=== PATIENT | male | born 1955 | race African-American/Black ===

== ENCOUNTER 2018-05-16 11:28 | Inpatient (IN) | payer MEDICARE, MEDICAID ==
[~2018-05-16] VITALS: Ht 170.2 cm; Wt 66.5 kg
[~2018-05-16 11:28] MED LIST: AMLO5TAB92 PO; ASPI-1265 PO; CARV-50 PO; LISI-600 PO; METF500T PO; NORCO10T PO; PANT40TA4 PO; PRAV20TA4 PO
[2018-05-16 12:16] LABS: BASOPHILS % (AUTO) 0.4 % (0-1); EOSINOPHILS % (AUTO) 0.7 % (0-6); LYMPHOCYTES # (AUTO) 1.2 X10'3 (1.1-4.8); LYMPHOCYTES % (AUTO) 26.5 % (21-51); MEAN CORPUSCULAR HEMOGLOBIN 26.8 PG (27.0-31.0); MEAN CORPUSCULAR HGB CONC 33.4 % (33.0-36.5); MEAN CORPUSCULAR VOLUME 80.4 FL (78-98); MEAN PLATELET VOLUME 8.6 FL (7.4-10.4); MONOCYTES # (AUTO) 0.3 X10'3 (0-0.9); MONOCYTES % (AUTO) 7.2 % (2-12); NEUTROPHILS % (AUTO) 65.2 % (42-75); PLATELET COUNT 207 X10'3 (140-440); RED BLOOD COUNT 4.47 X10'6 (4.70-6.10); RED CELL DISTRIBUTION WIDTH 14.9 % (11.5-14.5); WHITE BLOOD COUNT 4.7 X10'3 (4.5-11.0)
[2018-05-16 12:29] LABS: PARTIAL THROMBOPLASTIN TIME 30 SECONDS (22-32); PROTHROMBIN TIME 10.2 SECONDS (9.0-12.0)
[2018-05-16 12:30] LABS: ALANINE AMINOTRANSFERASE 26 U/L (12-78); ALBUMIN 2.2 G/DL (3.4-5.0); ALBUMIN/GLOBULIN RATIO 0.5 (1.1-1.5); ALKALINE PHOSPHATASE 87 IU/L (46-116); ANION GAP 7 (8-16); ASPARTATE AMINO TRANSFERASE 20 U/L (10-37); BILIRUBIN,TOTAL 0.2 MG/DL (0.1-1.0); BLOOD UREA NITROGEN 32 MG/DL (7-18); BUN/CREATININE RATIO 10.4 (5.4-32.0); CALCIUM 8.8 MG/DL (8.5-10.1); CHLORIDE 108 MMOL/L (99-107); CREATININE 3.08 MG/DL (0.60-1.10); GLUCOSE 159 MG/DL (70-104); POTASSIUM 4.1 MMOL/L (3.5-5.1); SODIUM 142 MMOL/L (135-145); TOTAL CARBON DIOXIDE 26.8 MMOL/L (24-32); TOTAL PROTEIN 6.9 G/DL (6.4-8.2); eGFR 25 ML/MIN
[2018-05-16] MEDS ORDERED: HYDROcodone/acetaminophen 5mg/325mg tablet PO PRN (13:05)
[2018-05-16] MEDS ORDERED: nitroGLYCERIN 0.4mg SUBLingual tab SL PRN (13:05)
[2018-05-16] MEDS ORDERED: insulin Lispro (HumaLOG) vial - multi-dose SQ SCH (13:05)
[2018-05-16] MEDS ORDERED: regadenoson 0.4mg/5ml syringe IV PRN (13:05)
[2018-05-16] MEDS ORDERED: morphine 2 MG/ML inj. syringe IV PRN (13:05)
[2018-05-16] MEDS ORDERED: magnesium Cl slow-release 64mg tablet PO PRN (13:05)
[2018-05-16] MEDS ORDERED: potassium Cl 40MEQ/NS 500ml 500 ML IV PRN ×2 (13:05)
[2018-05-16] MEDS ORDERED: dextrose 50%-water 50ml dispensing syringe IV PRN ×2 (13:05)
[2018-05-16] MEDS ORDERED: magnesium 4gm in 100ml NS 100 ML IV PRN (13:05)
[2018-05-16] MEDS ORDERED: magnesium 1gm/100ml D5W IVPB 100 ML IV PRN (13:05)
[2018-05-16] MEDS ORDERED: acetaminophen 325mg tablet PO PRN ×2 (13:05)
[2018-05-16] MEDS ORDERED: potassium Cl 20 mEq SR tablet PO PRN ×2 (13:05)
[2018-05-16] MEDS ORDERED: metoprolol tartrate 1mg/ml inj IV PRN (13:05)
[2018-05-16] MEDS ORDERED: mag hydrox/Alum hydrox/simeth 30ml oral suspension PO PRN (13:05)
[2018-05-16] MEDS ORDERED: diphenhydrAMINE 25mg capsule PO PRN (13:05)
[2018-05-16] MEDS ORDERED: MESSAGE TO PHARMACY PO ONE (13:05)
[2018-05-16] MEDS ORDERED: glucagon, human recombinant 1mg kit SUBCUT PRN (13:05)
[2018-05-16] MEDS ORDERED: dextrose ORAL solution 15 GM/59 ML bottle PO PRN ×2 (13:05)
[2018-05-16] MEDS ORDERED: magnesium hydroxide 30ml (MOM) UD suspension PO PRN (13:05)
[2018-05-16] MEDS ORDERED: aminophylline 250mg/10ml inj. IV PRN (13:05)
[2018-05-16] MEDS: K and/or MAG REPLACEMENT MC SCH (13:15)
[2018-05-16 13:28] LABS: HEMOGLOBIN A1C 7.2 % (4.5-6.2)
[2018-05-16] MEDS: normal saline 1000ml 1,000 ML IV SCH (14:51)
[2018-05-16] MEDS ORDERED: NIFE30TA88 PO (15:46)
[2018-05-16] MEDS ORDERED: CLON0.1T20 PO (15:59)
[2018-05-16] MEDS ORDERED: GLIM1TAB46 PO (16:00)
[2018-05-16] MEDS ORDERED: DOCU100C41 PO (16:00)
[2018-05-16] MEDS ORDERED: DULO-31 PO (16:01)
[2018-05-16] MEDS ORDERED: ERGOCALCIFEROL PO (16:02)
[2018-05-16 16:14] VITALS: BP 188/112
[2018-05-16] MEDS: hydrALAZINE 20mg/ml inj. IV PRN ×2 (16:39→23:46)
[2018-05-16] MEDS ORDERED: ERGOCALCIFEROL PO SCH (17:05)
[2018-05-16] MEDS ORDERED: labetalol 20mg/4ml (5mg/ml) syringe IV ONE (17:35)
[2018-05-16] MEDS ORDERED: LORazepam 2 mg/ml vial IV ONE (17:35)
[2018-05-16] MEDS: morphine 2 MG/ML inj. syringe IV PRN (18:02)
[2018-05-16 19:00] VITALS: BP 172/88
[2018-05-16] MEDS: cloNIDine 0.1 mg tablet PO SCH (20:23)
[2018-05-16] MEDS: carVEDilol 12.5mg tablet PO SCH (20:24)
[2018-05-16] MEDS: heparin, porcine 5000 units/ml vial SQ SCH (20:24)
[2018-05-16] MEDS: docusate sod 100mg capsule PO SCH (20:24)
[2018-05-16] MEDS ORDERED: non-formulary drug (Pravastatin Sodium 20 MG) PO SCH (21:00)
[2018-05-16] MEDS: insulin glargine (Lantus) pen - multi-dose SQ SCH (21:00)
[2018-05-16 23:00] VITALS: BP 189/102
[2018-05-17] VITALS (17 sets, daily range): BP systolic 137–183; BP diastolic 76–105
[2018-05-17] MEDS: HYDROcodone/acetaminophen 10/325mg tab PO PRN ×2 (00:30→07:10)
[2018-05-17] MEDS: morphine 2 MG/ML inj. syringe IV PRN (02:04)
[2018-05-17] MEDS: normal saline 1000ml 1,000 ML IV SCH ×3 (02:13→19:38)
[2018-05-17 05:56] LABS: BASOPHILS % (AUTO) 0 % (0-1); EOSINOPHILS # (AUTO) 0.1 X10'3 (0-0.9); EOSINOPHILS % (AUTO) 1.7 % (0-6); HEMATOCRIT 32.2 % (42.0-52.0); HEMOGLOBIN 10.7 g/dl (14.0-17.9); LYMPHOCYTES # (AUTO) 1.6 X10'3 (1.1-4.8); LYMPHOCYTES % (AUTO) 32.6 % (21-51); MEAN CORPUSCULAR HGB CONC 33.4 % (33.0-36.5); MEAN CORPUSCULAR VOLUME 80.7 FL (78-98); MEAN PLATELET VOLUME 9.2 FL (7.4-10.4); MONOCYTES # (AUTO) 0.5 X10'3 (0-0.9); MONOCYTES % (AUTO) 9.5 % (2-12); NEUTROPHILS # (AUTO) 2.8 X10'3 (1.8-7.7); NEUTROPHILS % (AUTO) 56.2 % (42-75); PLATELET COUNT 189 X10'3 (140-440); RED BLOOD COUNT 3.98 X10'6 (4.70-6.10); RED CELL DISTRIBUTION WIDTH 14.8 % (11.5-14.5); WHITE BLOOD COUNT 4.9 X10'3 (4.5-11.0)
[2018-05-17] MEDS: aspirin 81mg tab.chew PO SCH (07:06)
[2018-05-17] MEDS: heparin, porcine 5000 units/ml vial SQ SCH ×2 (07:06→19:41)
[2018-05-17] MEDS: carVEDilol 12.5mg tablet PO SCH ×2 (07:06→19:39)
[2018-05-17] MEDS: pantoprazole 40mg Tablet.DR PO SCH (07:06)
[2018-05-17] MEDS: duloxetine 30mg CAPSULE.DR PO SCH (07:06)
[2018-05-17] MEDS: NIFEdipine XL 30mg tablet PO SCH (07:06)
[2018-05-17] MEDS: cloNIDine 0.1 mg tablet PO SCH ×2 (07:06→19:40)
[2018-05-17] MEDS: docusate sod 100mg capsule PO SCH ×2 (07:06→19:39)
[2018-05-17 07:27] LABS: ALANINE AMINOTRANSFERASE 23 U/L (12-78); ALBUMIN 1.9 G/DL (3.4-5.0); ALBUMIN/GLOBULIN RATIO 0.5 (1.1-1.5); ALKALINE PHOSPHATASE 68 IU/L (46-116); ANION GAP 13 (8-16); ASPARTATE AMINO TRANSFERASE 19 U/L (10-37); BILIRUBIN,TOTAL 0.3 MG/DL (0.1-1.0); BLOOD UREA NITROGEN 30 MG/DL (7-18); BUN/CREATININE RATIO 10.8 (5.4-32.0); CALCIUM 8.2 MG/DL (8.5-10.1); CHLORIDE 111 MMOL/L (99-107); CHOL/HDL RATIO 2.7 (0.00-4.99); CHOLESTEROL 156 MG/DL (0-200); CREATININE 2.78 MG/DL (0.60-1.10); GLUCOSE 81 MG/DL (70-104); HDL CHOLESTEROL 58 MG/DL (35-60); LDL CHOLESTEROL 81 MG/DL (50-100); MAGNESIUM 1.5 MG/DL (1.5-2.4); PHOSPHORUS 3.2 MG/DL (2.3-4.5); POTASSIUM 3.6 MMOL/L (3.5-5.1); SODIUM 147 MMOL/L (135-145); TOTAL CARBON DIOXIDE 22.7 MMOL/L (24-32); TRIGLYCERIDES 106 MG/DL (20-135); eGFR 28 ML/MIN
[2018-05-17] MEDS: K and/or MAG REPLACEMENT MC SCH (08:00)
[2018-05-17] MEDS ORDERED: NIFEDIPINE PO SCH (08:00)
[2018-05-17] MEDS: ondansetron/PF 4mg/2ml inj IV PRN ×2 (09:32→12:46)
[2018-05-17] MEDS ORDERED: regadenoson 0.4mg/5ml syringe IV ONE (12:02)
[2018-05-17] MEDS ORDERED: aminophylline inj. 10 ML IV ONE (12:02)
[2018-05-17] MEDS ORDERED: ondansetron/PF 4mg/2ml inj ONE (12:39)
[2018-05-17] MEDS ORDERED: atorvastatin 10mg tablet PO SCH (21:00)
[2018-05-17] MEDS: insulin glargine (Lantus) pen - multi-dose SQ SCH (21:25)
[2018-05-18 02:00] VITALS: BP 180/91
[2018-05-18 03:43] VITALS: BP 184/96
[2018-05-18] MEDS: hydrALAZINE 20mg/ml inj. IV PRN (03:43)
[2018-05-18 04:57] LABS: BASOPHILS % (AUTO) 0.4 % (0-1); EOSINOPHILS # (AUTO) 0.1 X10'3 (0-0.9); HEMOGLOBIN 10.3 g/dl (14.0-17.9); LYMPHOCYTES # (AUTO) 1.6 X10'3 (1.1-4.8); LYMPHOCYTES % (AUTO) 25.4 % (21-51); MEAN CORPUSCULAR HEMOGLOBIN 26.7 PG (27.0-31.0); MEAN CORPUSCULAR HGB CONC 33.1 % (33.0-36.5); MEAN CORPUSCULAR VOLUME 80.5 FL (78-98); MEAN PLATELET VOLUME 9.1 FL (7.4-10.4); MONOCYTES # (AUTO) 0.5 X10'3 (0-0.9); NEUTROPHILS # (AUTO) 4.1 X10'3 (1.8-7.7); NEUTROPHILS % (AUTO) 65.2 % (42-75); PLATELET COUNT 179 X10'3 (140-440); RED BLOOD COUNT 3.85 X10'6 (4.70-6.10); WHITE BLOOD COUNT 6.2 X10'3 (4.5-11.0)
[2018-05-18 07:00] VITALS: BP 179/99
[2018-05-18 07:15] LABS: ALANINE AMINOTRANSFERASE 22 U/L (12-78); ALBUMIN 1.8 G/DL (3.4-5.0); ALBUMIN/GLOBULIN RATIO 0.5 (1.1-1.5); ALKALINE PHOSPHATASE 63 IU/L (46-116); ANION GAP 10 (8-16); ASPARTATE AMINO TRANSFERASE 21 U/L (10-37); BILIRUBIN,TOTAL 0.3 MG/DL (0.1-1.0); BLOOD UREA NITROGEN 33 MG/DL (7-18); BUN/CREATININE RATIO 11.7 (5.4-32.0); CALCIUM 8.2 MG/DL (8.5-10.1); CHLORIDE 110 MMOL/L (99-107); CREATININE 2.82 MG/DL (0.60-1.10); GLUCOSE 84 MG/DL (70-104); MAGNESIUM 1.5 MG/DL (1.5-2.4); PHOSPHORUS 2.9 MG/DL (2.3-4.5); POTASSIUM 3.8 MMOL/L (3.5-5.1); SODIUM 143 MMOL/L (135-145); TOTAL CARBON DIOXIDE 23.1 MMOL/L (24-32); TOTAL PROTEIN 5.6 G/DL (6.4-8.2); eGFR 28 ML/MIN
[2018-05-18] MEDS: heparin, porcine 5000 units/ml vial SQ SCH (07:15)
[2018-05-18] MEDS: NIFEdipine XL 30mg tablet PO SCH (07:15)
[2018-05-18] MEDS: carVEDilol 12.5mg tablet PO SCH (07:16)
[2018-05-18] MEDS: pantoprazole 40mg Tablet.DR PO SCH (07:16)
[2018-05-18] MEDS: duloxetine 30mg CAPSULE.DR PO SCH (07:17)
[2018-05-18] MEDS: docusate sod 100mg capsule PO SCH (07:17)
[2018-05-18] MEDS: cloNIDine 0.1 mg tablet PO SCH (07:17)
[2018-05-18] MEDS: aspirin 81mg tab.chew PO SCH (07:17)
[2018-05-18] MEDS: K and/or MAG REPLACEMENT MC SCH (08:00)
[2018-05-18] MEDS ORDERED: isosorbide mononitrate 30mg tab.SR.24H PO SCH (08:00)
[2018-05-18] MEDS: normal saline 1000ml 1,000 ML IV SCH (08:46)
[2018-05-18 11:00] VITALS: BP 115/64
[2018-05-18] MEDS ORDERED: ISOS30TA6 PO (13:28)
[2018-05-18] MEDS ORDERED: CLON0.1T20 PO (13:28)
[2018-05-21] MEDS ORDERED: DRISDOL PO SCH (08:00)
== END 2018-05-18 14:50 | disposition home or self-care (01) | DRG 683 ==
LOC: ER 11:29 → ED HOLD 13:04 → PCU 3S 16:17
PROVIDERS: ADMIT Family Medicine; ATTEND Family Medicine
PROC: 4A02XM4 Measurement of Cardiac Total Activity, External Approach (ICD-10-PCS; principal; 2018-05-17)
PROC: 3E033HZ Introduction of Radioactive Substance into Peripheral Vein, Percutaneous Approach (ICD-10-PCS; 2018-05-17)
DX: N17.9 Acute kidney failure, unspecified (principal); I69.354 Hemiplegia and hemiparesis following cerebral infarction affecting left non-dominant side; I20.9 Angina pectoris, unspecified; E11.22 Type 2 diabetes mellitus with diabetic chronic kidney disease; E78.00 Pure hypercholesterolemia, unspecified; E78.5 Hyperlipidemia, unspecified; G89.4 Chronic pain syndrome; I12.9 Hypertensive chronic kidney disease with stage 1 through stage 4 chronic kidney disease, or unspecified chronic kidney disease; K21.9 Gastro-esophageal reflux disease without esophagitis; I34.0 Nonrheumatic mitral (valve) insufficiency; Z60.2 Problems related to living alone; N18.3 Chronic kidney disease, stage 3 (moderate); I69.328 Other speech and language deficits following cerebral infarction; Z74.01 Bed confinement status; Z99.3 Dependence on wheelchair; Z99.81 Dependence on supplemental oxygen; Z88.8 Allergy status to other drugs, medicaments and biological substances; Z79.82 Long term (current) use of aspirin; Z79.899 Other long term (current) drug therapy; Z79.84 Long term (current) use of oral hypoglycemic drugs; Z87.891 Personal history of nicotine dependence; Z83.3 Family history of diabetes mellitus
CPT/HCPCS: 36415; 71045; 78452; 80053; 80061; 82948; 83036; 83735; 84100; 84484; 85025; 85610; 85730; 87070; 93005; 93017; 93306; 99285; A9500; G0378; J0280; J0360; J1644; J1815; J2060; J2270; J2405; J3490; J7030

== ENCOUNTER 2018-09-29 12:53 | Inpatient (IN) | payer MEDICARE, MEDICAID ==
[~2018-09-29] VITALS: Ht 170.2 cm; Wt 72.7 kg
[~2018-09-29 12:53] MED LIST changes: -AMLO5TAB92 PO; +CLON0.1T20 PO; +DOCU100C41 PO; +DULO-31 PO; +ERGOCALCIFEROL PO; +GLIM1TAB46 PO; +ISOS30TA6 PO; -LISI-600 PO; -METF500T PO; +NIFE30TA88 PO
[2018-09-29 13:42] LABS: BASOPHILS % (AUTO) 0.6 % (0-1); EOSINOPHILS % (AUTO) 0.5 % (0-6); HEMATOCRIT 30.8 % (42.0-52.0); HEMOGLOBIN 10.3 g/dl (14.0-17.9); LYMPHOCYTES # (AUTO) 0.9 X10'3 (1.1-4.8); LYMPHOCYTES % (AUTO) 15.8 % (21-51); MEAN CORPUSCULAR HEMOGLOBIN 27.4 PG (27.0-31.0); MEAN CORPUSCULAR HGB CONC 33.4 g/dL (33.0-36.5); MEAN CORPUSCULAR VOLUME 81.9 FL (78-98); MEAN PLATELET VOLUME 8.9 FL (7.4-10.4); MONOCYTES # (AUTO) 0.4 X10'3 (0-0.9); MONOCYTES % (AUTO) 7.4 % (2-12); NEUTROPHILS # (AUTO) 4.2 X10'3 (1.8-7.7); NEUTROPHILS % (AUTO) 75.7 % (42-75); PLATELET COUNT 144 X10'3 (140-440); RED BLOOD COUNT 3.76 X10'6 (4.70-6.10); RED CELL DISTRIBUTION WIDTH 14.8 % (11.5-14.5); WHITE BLOOD COUNT 5.5 X10'3 (4.5-11.0)
[2018-09-29 14:07] LABS: ALANINE AMINOTRANSFERASE 33 U/L (12-78); ALBUMIN 1.7 G/DL (3.4-5.0); ALBUMIN/GLOBULIN RATIO 0.5 (1.1-1.5); ALKALINE PHOSPHATASE 61 IU/L (46-116); ANION GAP 9 (8-16); ASPARTATE AMINO TRANSFERASE 22 U/L (10-37); BILIRUBIN,TOTAL 0.2 MG/DL (0.1-1.0); BLOOD UREA NITROGEN 51 MG/DL (7-18); BUN/CREATININE RATIO 12.3 (5.4-32.0); CALCIUM 7.9 MG/DL (8.5-10.1); CHLORIDE 111 MMOL/L (99-107); CREATININE 4.13 MG/DL (0.60-1.10); GLUCOSE 237 MG/DL (70-104); POTASSIUM 3.6 MMOL/L (3.5-5.1); SODIUM 143 MMOL/L (135-145); TOTAL CARBON DIOXIDE 22.8 MMOL/L (24-32); TOTAL PROTEIN 5.3 G/DL (6.4-8.2); eGFR 18 ML/MIN
[2018-09-29 14:11] LABS: PARTIAL THROMBOPLASTIN TIME 28 SECONDS (22-32)
[2018-09-29] MEDS ORDERED: normal saline 1000ml 1,000 ML IV ONE (14:32)
[2018-09-29] MEDS ORDERED: normal saline 1000ML IV soln IVB ONE (14:35)
--- NOTE | 2018-09-29 15:28 | NUR ---
ns bolus going.
--- NOTE | 2018-09-29 15:38 | NUR ---
pt to ct.
[2018-09-29 16:18] LABS: CLARITY,URINE CLEAR (Clear); COLOR,URINE YELLOW (Yellow); GLUCOSE, URINE 500 mg/dl (Neg); KETONES,URINE NEGATIVE (Neg); LEUKOCYTE ESTERASE ,URINE NEGATIVE (Neg); NITRITES, URINE NEGATIVE (Neg); OCCULT BLOOD,URINE MODERATE (Neg); PH,URINE 6.5 (4.8-8.0); PROTEIN,URINE >=300 mg/dl (Neg)
[2018-09-29 16:20] LABS: UA COLLECTION TYPE CLN CATCH MIDSTREAM
[2018-09-29 16:37] LABS: SQUAMOUS EPITHELIAL CELL,UR NONE SEEN /LPF (FEW)
[2018-09-29 16:38] LABS: RBC,URINE 0-2 /HPF (0-2); WBC,URINE 0-4 /HPF (0-4)
[2018-09-29 16:39] LABS: BACTERIA,URINE FEW /HPF (Neg)
[2018-09-29] MEDS ORDERED: hydrALAZINE 20mg/ml inj. IV ONE (16:50)
[2018-09-29] MEDS ORDERED: hyDRALAzine 10mg tablet PO STA (16:50)
[2018-09-29] MEDS ORDERED: normal saline 1000ml 1,000 ML IV SCH (16:57)
[2018-09-29] MEDS ORDERED: morphine 4 MG/ML inj SYRINge IV PRN (17:00)
[2018-09-29] MEDS ORDERED: magnesium Cl slow-release 64mg tablet PO PRN (17:00)
[2018-09-29] MEDS ORDERED: magnesium 2GM in 50ml NS 50 ML IV PRN (17:00)
[2018-09-29] MEDS ORDERED: glucagon, human recombinant 1mg kit SUBCUT PRN (17:00)
[2018-09-29] MEDS ORDERED: ondansetron/PF 4mg/2ml inj IV PRN (17:00)
[2018-09-29] MEDS ORDERED: docusate sod 100mg capsule PO PRN (17:00)
[2018-09-29] MEDS ORDERED: dextrose ORAL solution 15 GM/59 ML bottle PO PRN ×2 (17:00)
[2018-09-29] MEDS ORDERED: acetaminophen 325mg tablet PO PRN ×2 (17:00)
[2018-09-29] MEDS ORDERED: potassium Cl 40MEQ/NS 500ml 500 ML IV PRN ×2 (17:00)
[2018-09-29] MEDS ORDERED: MESSAGE TO PHARMACY PO ONE (17:00)
[2018-09-29] MEDS ORDERED: dextrose 50%-water 50ml dispensing syringe IV PRN ×2 (17:00)
[2018-09-29] MEDS ORDERED: potassium Cl 20 mEq SR tablet PO PRN (17:00)
[2018-09-29] MEDS ORDERED: magnesium 4gm in 100ml NS 100 ML IV PRN (17:00)
[2018-09-29] MEDS: HYDROcodone/acetaminophen 5mg/325mg tablet PO PRN ×2 (17:26→23:35)
[2018-09-29] MEDS ORDERED: ISOS30TA6 PO (17:49)
[2018-09-29] MEDS ORDERED: ERGO500041 PO (17:49)
[2018-09-29 18:17] LABS: HEMOGLOBIN A1C 7.1 % (4.5-6.2)
--- NOTE | 2018-09-29 19:41 | NUR ---
Patient in room ED 13. I have received report from Allison KUMAR and had the opportunity to ask questions and assume patient care.
[2018-09-29 21:00] VITALS: BP 190/112
[2018-09-29] MEDS: insulin glargine (Lantus) pen - multi-dose SQ SCH (21:00)
[2018-09-29] MEDS ORDERED: temazepam 15mg capsule PO PRN (21:00)
[2018-09-29] MEDS: carVEDilol 12.5mg tablet PO SCH (21:50)
[2018-09-29] MEDS: cloNIDine 0.1 mg tablet PO SCH (21:51)
[2018-09-29] MEDS: heparin, porcine 5000 units/ml vial SQ SCH (21:56)
--- NOTE | 2018-09-29 22:55 | NUR ---
pt bp is 218/119, will notify the doctor
--- NOTE | 2018-09-29 22:56 | NUR ---
PAGER ID: [phone] MESSAGE: Don Martín Nichols [id number], BP is 218/108, no c/o of headache or dizzy. Thanks, Marylu KUMAR [id number] Addendum: 09/29/18 at 2310 by Marylu Arriaga RN gave order of labetolol 10mg IV q4h
[2018-09-29] MEDS ORDERED: labetalol 20mg/4ml (5mg/ml) syringe IV PRN (23:10)
[2018-09-30] VITALS (8 sets, daily range): BP systolic 105–230; BP diastolic 56–120
--- NOTE | 2018-09-30 00:55 | NUR ---
PAGER ID: [phone] MESSAGE: Dennis Robb, smith Resendiz 3016B, BP is 235/ 120, Hr 89, asymptomatic. I gave lobetalol IV 10mg @2323. Marylu [id number]! Addendum: 09/30/18 at 0114 by Marylu Arriaga RN PAGER ID: [phone] MESSAGE: Dennis Robb, Martín Stanford bp with 230/ 120 also has NS running @125ml/hr. Would you suggest any changes? Thanks, Marylu [id number] Got an order of hydralazine 10mg IV push and 10mg pc, D/C fluid
[2018-09-30] MEDS ORDERED: hyDRALAzine 10mg tablet PO PRN (01:00)
[2018-09-30] MEDS ORDERED: hydrALAZINE 20mg/ml inj. IV PRN (01:00)
[2018-09-30 03:15] LABS: BASOPHILS % (AUTO) 0.4 % (0-1); EOSINOPHILS % (AUTO) 0.6 % (0-6); HEMATOCRIT 31.4 % (42.0-52.0); HEMOGLOBIN 10.5 g/dl (14.0-17.9); LYMPHOCYTES % (AUTO) 18.3 % (21-51); MEAN CORPUSCULAR HEMOGLOBIN 27.5 PG (27.0-31.0); MEAN CORPUSCULAR HGB CONC 33.4 g/dL (33.0-36.5); MEAN CORPUSCULAR VOLUME 82.2 FL (78-98); MEAN PLATELET VOLUME 9.5 FL (7.4-10.4); MONOCYTES # (AUTO) 0.4 X10'3 (0-0.9); MONOCYTES % (AUTO) 7.5 % (2-12); NEUTROPHILS # (AUTO) 4.1 X10'3 (1.8-7.7); NEUTROPHILS % (AUTO) 73.2 % (42-75); PLATELET COUNT 153 X10'3 (140-440); RED BLOOD COUNT 3.82 X10'6 (4.70-6.10); RED CELL DISTRIBUTION WIDTH 14.8 % (11.5-14.5); WHITE BLOOD COUNT 5.6 X10'3 (4.5-11.0)
[2018-09-30 03:28] LABS: ALBUMIN 1.7 G/DL (3.4-5.0); ANION GAP 10 (8-16); BLOOD UREA NITROGEN 45 MG/DL (7-18); BUN/CREATININE RATIO 11.8 (5.4-32.0); CALCIUM 7.7 MG/DL (8.5-10.1); CHLORIDE 112 MMOL/L (99-107); GLUCOSE 153 MG/DL (70-104); MAGNESIUM 1.3 MG/DL (1.5-2.4); POTASSIUM 3.4 MMOL/L (3.5-5.1); SODIUM 144 MMOL/L (135-145); TOTAL CARBON DIOXIDE 21.6 MMOL/L (24-32); eGFR 20 ML/MIN
--- NOTE | 2018-09-30 04:39 | NUR ---
pt bp is 210/110, symptomatic will give IV hydralazine 10mg second time, will continue to monitor Addendum: 09/30/18 at 0452 by Marylu Arriaga RN checked bp prior to give meds, Bp dropped to 180/115, only PO hydralazine 10mg was given, will continue to monitor
--- NOTE | 2018-09-30 06:37 | NUR ---
Problems reprioritized. Patient report given, questions answered & plan of care reviewed with VAL KUMAR.
--- NOTE | 2018-09-30 06:50 | NUR ---
Patient in room PCU 3016. I have received report from Marylu KUMAR and had the opportunity to ask questions and assume patient care. Pt is alert and oriented X 3, saline locked, in no apparent distress, will continue to monitor.
[2018-09-30] MEDS: NIFEdipine XL 30mg tablet PO SCH (07:34)
[2018-09-30] MEDS: pantoprazole 40mg Tablet.DR PO SCH (07:35)
[2018-09-30] MEDS: cloNIDine 0.1 mg tablet PO SCH ×2 (07:36→20:21)
[2018-09-30] MEDS: carVEDilol 12.5mg tablet PO SCH ×2 (07:36→20:21)
[2018-09-30] MEDS: isosorbide mononitrate 30mg tab.SR.24H PO SCH ×2 (07:37→08:35)
[2018-09-30] MEDS: heparin, porcine 5000 units/ml vial SQ SCH ×2 (07:40→20:22)
[2018-09-30] MEDS: K and/or MAG REPLACEMENT MC SCH (08:00)
[2018-09-30] MEDS ORDERED: aspirin 81mg tab.chew PO SCH (08:00)
[2018-09-30] MEDS ORDERED: atorvastatin 10mg tablet PO SCH (08:00)
[2018-09-30] MEDS: HYDROcodone/acetaminophen 5mg/325mg tablet PO PRN ×2 (08:35→18:59)
--- NOTE | 2018-09-30 12:38 | NUR ---
PAGER ID: [phone] MESSAGE: [id number] Martín Terry MRI ordered, however, pt is claustrophobic. Is it possible to get Ativan ordered PRN. Thank you #[phone]
[2018-09-30] MEDS ORDERED: LORazepam 2 mg/ml vial IV PRN (12:40)
[2018-09-30] MEDS: potassium Cl 20 mEq SR tablet PO PRN ×3 (14:39→23:43)
--- NOTE | 2018-09-30 16:26 | NUR ---
DM consult: Pt with A1c 7.1 seen at bedside. Pt states he takes his DM meds per rx without difficulties and and checks his BG every morning with resulting numbers 115-135. Pt given written and verbal DM education with referral to outpatient DM class. Pt seemed very eager to attend outpatient class. RD contact information provided. Will remain available. Pt endorses a good appetite and states he is still hungry after meals despite documented PO intake averaging 75%; pt agreeable to double protein TID, d/w dietary. Pt denies any food allergies or difficulty chewing/swallowing. Addendum: 09/30/18 at [address] Amended: Links added.
[2018-09-30] MEDS: potassium cl 20mEq in 1/2 NS 1,000 ML IV SCH (16:31)
--- NOTE | 2018-09-30 18:30 | NUR ---
Patient in room PCU 3016A. I have received report from Kaila and Iris RN's and had the opportunity to ask questions and assume patient care.
--- NOTE | 2018-09-30 18:38 | NUR ---
Problems reprioritized. Patient report given, questions answered & plan of care reviewed with Iris KUMAR.
--- NOTE | 2018-09-30 20:03 | NUR ---
MRI positive stroke noted. Spoke with Dr. Armstrong who states that he will call Dr. Yip and follow up with me. Stroke team paged. Sophie stroke nurse called and we reviewed his current orders and wants patient on Neuro checks and one [facility] tonight. I am stroke certified so I can do tonight. I will apply SCD's on patient tonight. Dr. Armstrong said wants the teleneuro tonight.
[2018-09-30] MEDS: atorvastatin 10mg tablet PO SCH (20:21)
[2018-09-30] MEDS: insulin glargine (Lantus) pen - multi-dose SQ SCH (21:00)
--- NOTE | 2018-09-30 22:28 | NUR ---
TELENEURO COMPLETED AT THIS TIME. HE STATED THAT PATIENT WOULD NEED A MRA TO BETTER VISUALIZATION OF THE BRAIN. HE STATED THAT HE WOULD SEND OVER A RECOMMENDATION AND TO FOLLOW UP WITH THOSE RECOMMENDATION WITH DR. WILEY.
[2018-09-30] MEDS ORDERED: aspirin 325mg tablet PO ONE (23:20)
--- NOTE | 2018-09-30 23:25 | NUR ---
Spoke with Dr. Armsrtong regarding neuro consult recommendation with new orders placed.
[2018-10-01] VITALS (7 sets, daily range): BP systolic 122–198; BP diastolic 81–116
--- NOTE | 2018-10-01 02:38 | NUR ---
Found patient sitting in bed with multiple pills laying in his lap. I saw the cap to a bottle that said opioids. I then found the bottle which read [place] 10/325mg with patient name on RX. Patient then allowed me and charge nurse to count Happy Camp out and found 110 Happy Camp's. Educated patient that we don't store home medication at bedside and we do not take home medication due to possible interaction of medication. Also, educated patient that we will give him pain medication here if he needs them. Happy Camp now stored in pharmacy.
--- NOTE | 2018-10-01 06:25 | NUR ---
Problems reprioritized. Patient report given, questions answered & plan of care reviewed with Susanne Oviedo.
[2018-10-01 06:39] LABS: BASOPHILS % (AUTO) 0.7 % (0-1); EOSINOPHILS % (AUTO) 0.7 % (0-6); HEMATOCRIT 33.1 % (42.0-52.0); LYMPHOCYTES # (AUTO) 0.8 X10'3 (1.1-4.8); LYMPHOCYTES % (AUTO) 15.2 % (21-51); MEAN CORPUSCULAR HEMOGLOBIN 27.3 PG (27.0-31.0); MEAN CORPUSCULAR HGB CONC 33.2 g/dL (33.0-36.5); MEAN CORPUSCULAR VOLUME 82.4 FL (78-98); MEAN PLATELET VOLUME 9.3 FL (7.4-10.4); MONOCYTES # (AUTO) 0.4 X10'3 (0-0.9); MONOCYTES % (AUTO) 7.3 % (2-12); NEUTROPHILS # (AUTO) 3.8 X10'3 (1.8-7.7); NEUTROPHILS % (AUTO) 76.1 % (42-75); PLATELET COUNT 157 X10'3 (140-440); RED BLOOD COUNT 4.02 X10'6 (4.70-6.10); RED CELL DISTRIBUTION WIDTH 15.3 % (11.5-14.5)
[2018-10-01 07:03] LABS: ALANINE AMINOTRANSFERASE 32 U/L (12-78); ALBUMIN 1.7 G/DL (3.4-5.0); ALBUMIN/GLOBULIN RATIO 0.4 (1.1-1.5); ALKALINE PHOSPHATASE 55 IU/L (46-116); ANION GAP 10 (8-16); ASPARTATE AMINO TRANSFERASE 28 U/L (10-37); BILIRUBIN,TOTAL 0.2 MG/DL (0.1-1.0); BLOOD UREA NITROGEN 48 MG/DL (7-18); BUN/CREATININE RATIO 12.7 (5.4-32.0); CALCIUM 8.3 MG/DL (8.5-10.1); CHLORIDE 110 MMOL/L (99-107); CHOL/HDL RATIO 2.3 (0.00-4.99); CHOLESTEROL 150 MG/DL (0-200); CREATININE 3.78 MG/DL (0.60-1.10); GLUCOSE 134 MG/DL (70-104); HDL CHOLESTEROL 64 MG/DL (35-60); LDL CHOLESTEROL 65 MG/DL (50-100); MAGNESIUM 2.5 MG/DL (1.5-2.4); POTASSIUM 4.4 MMOL/L (3.5-5.1); SODIUM 140 MMOL/L (135-145); TOTAL CARBON DIOXIDE 19.7 MMOL/L (24-32); TOTAL PROTEIN 5.6 G/DL (6.4-8.2); TRIGLYCERIDES 132 MG/DL (20-135); eGFR 20 ML/MIN
[2018-10-01] MEDS: cloNIDine 0.1 mg tablet PO SCH ×2 (07:08→21:16)
[2018-10-01] MEDS: potassium cl 20mEq in 1/2 NS 1,000 ML IV SCH ×2 (07:59→14:40)
[2018-10-01] MEDS: K and/or MAG REPLACEMENT MC SCH (08:00)
[2018-10-01] MEDS: carVEDilol 12.5mg tablet PO SCH ×2 (09:28→21:16)
[2018-10-01] MEDS: NIFEdipine XL 30mg tablet PO SCH (09:28)
[2018-10-01] MEDS: isosorbide mononitrate 30mg tab.SR.24H PO SCH (09:28)
[2018-10-01] MEDS: pantoprazole 40mg Tablet.DR PO SCH (09:29)
[2018-10-01] MEDS: aspirin 325mg tablet PO SCH (09:31)
[2018-10-01] MEDS: HYDROcodone/acetaminophen 5mg/325mg tablet PO PRN (09:40)
[2018-10-01] MEDS ORDERED: LORazepam 2 mg/ml vial IV ONE ×2 (14:45→15:30)
--- NOTE | 2018-10-01 18:24 | NUR ---
Received report from Ivelisse KUMAR, assumed care of patient.
--- NOTE | 2018-10-01 18:24 | NUR ---
Problems reprioritized. Patient report given, questions answered & plan of care reviewed with STACY LITTLE.
[2018-10-01] MEDS: insulin glargine (Lantus) pen - multi-dose SQ SCH (21:00)
[2018-10-01] MEDS: heparin, porcine 5000 units/ml vial SQ SCH (21:17)
[2018-10-01] MEDS: atorvastatin 10mg tablet PO SCH (21:17)
[2018-10-02] VITALS (7 sets, daily range): BP systolic 101–183; BP diastolic 58–104
[2018-10-02] MEDS: potassium cl 20mEq in 1/2 NS 1,000 ML IV SCH (02:22)
[2018-10-02 06:06] LABS: BASOPHILS % (AUTO) 0.8 % (0-1); EOSINOPHILS % (AUTO) 0.7 % (0-6); HEMATOCRIT 32.8 % (42.0-52.0); HEMOGLOBIN 10.9 g/dl (14.0-17.9); LYMPHOCYTES # (AUTO) 1.2 X10'3 (1.1-4.8); LYMPHOCYTES % (AUTO) 21.7 % (21-51); MEAN CORPUSCULAR HEMOGLOBIN 27.5 PG (27.0-31.0); MEAN CORPUSCULAR HGB CONC 33.1 g/dL (33.0-36.5); MEAN CORPUSCULAR VOLUME 83.1 FL (78-98); MEAN PLATELET VOLUME 9.3 FL (7.4-10.4); MONOCYTES # (AUTO) 0.4 X10'3 (0-0.9); MONOCYTES % (AUTO) 8.1 % (2-12); NEUTROPHILS # (AUTO) 3.8 X10'3 (1.8-7.7); NEUTROPHILS % (AUTO) 68.7 % (42-75); PLATELET COUNT 153 X10'3 (140-440); RED BLOOD COUNT 3.95 X10'6 (4.70-6.10); RED CELL DISTRIBUTION WIDTH 15.4 % (11.5-14.5); WHITE BLOOD COUNT 5.5 X10'3 (4.5-11.0)
--- NOTE | 2018-10-02 06:10 | NUR ---
Patient in room PCU 3016. I have received report from Jody KUMAR and had the opportunity to ask questions and assume patient care.
--- NOTE | 2018-10-02 06:21 | NUR ---
Report given to Ivonne KUMAR.
[2018-10-02 06:29] LABS: ALBUMIN 1.6 G/DL (3.4-5.0); ANION GAP 9 (8-16); BLOOD UREA NITROGEN 49 MG/DL (7-18); BUN/CREATININE RATIO 13.2 (5.4-32.0); CALCIUM 8.2 MG/DL (8.5-10.1); CHLORIDE 110 MMOL/L (99-107); CREATININE 3.72 MG/DL (0.60-1.10); GLUCOSE 137 MG/DL (70-104); MAGNESIUM 2.1 MG/DL (1.5-2.4); POTASSIUM 4.5 MMOL/L (3.5-5.1); SODIUM 139 MMOL/L (135-145); TOTAL CARBON DIOXIDE 19.9 MMOL/L (24-32); eGFR 20 ML/MIN
[2018-10-02] MEDS: K and/or MAG REPLACEMENT MC SCH (08:00)
[2018-10-02] MEDS: aspirin 325mg tablet PO SCH (08:40)
[2018-10-02] MEDS: HYDROcodone/acetaminophen 5mg/325mg tablet PO PRN ×3 (08:40→21:03)
[2018-10-02] MEDS: NIFEdipine XL 30mg tablet PO SCH (08:41)
[2018-10-02] MEDS: carVEDilol 12.5mg tablet PO SCH ×2 (08:41→19:22)
[2018-10-02] MEDS: isosorbide mononitrate 30mg tab.SR.24H PO SCH (08:41)
[2018-10-02] MEDS: pantoprazole 40mg Tablet.DR PO SCH (08:42)
[2018-10-02] MEDS: cloNIDine 0.1 mg tablet PO SCH ×2 (08:42→19:21)
[2018-10-02] MEDS: heparin, porcine 5000 units/ml vial SQ SCH ×2 (08:42→19:22)
[2018-10-02] MEDS: hydrALAZINE 20mg/ml inj. IV PRN (10:36)
--- NOTE | 2018-10-02 14:22 | NUR ---
Patient getting carotid US done at bedside at this time.
[2018-10-02] MEDS: sodium chloride 0.45% 1,000 ML IV SCH ×2 (14:49→23:00)
--- NOTE | 2018-10-02 17:23 | NUR ---
Student documentation: I have reviewed and agree with all interventions, assessments performed and documented by Louis Student Nurse. Student Medication Administration: For this medication-pass time frame, all medication were reviewed, dispensed, administered and documented per hospital policy by Louis Masters Nurse.
--- NOTE | 2018-10-02 18:13 | NUR ---
Problems reprioritized. Patient report given, questions answered & plan of care reviewed with Carlee KUMAR.
[2018-10-02] MEDS: insulin Lispro (HumaLOG) vial - multi-dose SQ SCH (19:24)
[2018-10-02] MEDS: atorvastatin 10mg tablet PO SCH (21:03)
[2018-10-02] MEDS: insulin glargine (Lantus) pen - multi-dose SQ SCH (21:08)
[2018-10-03 02:00] VITALS: BP 172/82
--- NOTE | 2018-10-03 06:39 | NUR ---
Patient in room PCU 3016. I have received report from Carlee KUMAR and had the opportunity to ask questions and assume patient care.
[2018-10-03 06:46] LABS: BASOPHILS # (AUTO) 0.1 X10'3 (0-0.2); BASOPHILS % (AUTO) 0.7 % (0-1); EOSINOPHILS % (AUTO) 0.6 % (0-6); HEMATOCRIT 30.7 % (42.0-52.0); HEMOGLOBIN 10.8 g/dl (14.0-17.9); LYMPHOCYTES # (AUTO) 1.2 X10'3 (1.1-4.8); LYMPHOCYTES % (AUTO) 15.2 % (21-51); MEAN CORPUSCULAR HGB CONC 35.2 g/dL (33.0-36.5); MEAN CORPUSCULAR VOLUME 82.5 FL (78-98); MEAN PLATELET VOLUME 9.2 FL (7.4-10.4); MONOCYTES # (AUTO) 0.7 X10'3 (0-0.9); MONOCYTES % (AUTO) 8.7 % (2-12); NEUTROPHILS # (AUTO) 5.9 X10'3 (1.8-7.7); NEUTROPHILS % (AUTO) 74.8 % (42-75); PLATELET COUNT 154 X10'3 (140-440); RED BLOOD COUNT 3.72 X10'6 (4.70-6.10); RED CELL DISTRIBUTION WIDTH 15.4 % (11.5-14.5); WHITE BLOOD COUNT 7.9 X10'3 (4.5-11.0)
[2018-10-03 06:52] LABS: ALBUMIN 1.6 G/DL (3.4-5.0); ANION GAP 9 (8-16); BLOOD UREA NITROGEN 56 MG/DL (7-18); BUN/CREATININE RATIO 12.5 (5.4-32.0); CALCIUM 8.4 MG/DL (8.5-10.1); CHLORIDE 111 MMOL/L (99-107); CREATININE 4.48 MG/DL (0.60-1.10); MAGNESIUM 1.8 MG/DL (1.5-2.4); POTASSIUM 4.2 MMOL/L (3.5-5.1); SODIUM 142 MMOL/L (135-145); TOTAL CARBON DIOXIDE 21.8 MMOL/L (24-32); eGFR 16 ML/MIN
[2018-10-03 06:57] LABS: GLUCOSE 48 MG/DL (70-104)
[2018-10-03 07:00] VITALS: BP 180/96
--- NOTE | 2018-10-03 07:00 | NUR ---
PATIENTS BLOOD SUGAR WAS 41. dEX GIVEN PER emar. [id number] Watson aware. PT working with patient. b/p 180/96 given meds as per emar 134/63. UA obtained from patient. patient seen by Cal Watson.
[2018-10-03] MEDS: NIFEdipine XL 30mg tablet PO SCH (07:16)
[2018-10-03] MEDS: isosorbide mononitrate 30mg tab.SR.24H PO SCH (07:16)
[2018-10-03] MEDS: pantoprazole 40mg Tablet.DR PO SCH (07:16)
[2018-10-03] MEDS: carVEDilol 12.5mg tablet PO SCH ×2 (07:16→19:39)
[2018-10-03] MEDS: cloNIDine 0.1 mg tablet PO SCH ×2 (07:16→19:39)
[2018-10-03] MEDS: heparin, porcine 5000 units/ml vial SQ SCH ×2 (07:23→19:39)
[2018-10-03] MEDS: aspirin 325mg tablet PO SCH (07:30)
[2018-10-03] MEDS: K and/or MAG REPLACEMENT MC SCH (08:00)
[2018-10-03] MEDS: sodium chloride 0.45% 1,000 ML IV SCH ×2 (09:00→19:00)
[2018-10-03 11:00] VITALS: BP 134/63
[2018-10-03 15:00] VITALS: BP 152/82
[2018-10-03] MEDS: HYDROcodone/acetaminophen 5mg/325mg tablet PO PRN (16:02)
--- NOTE | 2018-10-03 18:25 | NUR ---
Problems reprioritized. Patient report given, questions answered & plan of care reviewed with Carlee KUMAR.
[2018-10-03 19:07] LABS: CLARITY,URINE CLEAR (Clear); COLOR,URINE YELLOW (Yellow); GLUCOSE, URINE 250 mg/dl (Neg); KETONES,URINE NEGATIVE (Neg); LEUKOCYTE ESTERASE ,URINE NEGATIVE (Neg); NITRITES, URINE NEGATIVE (Neg); OCCULT BLOOD,URINE SMALL (Neg); PH,URINE 6.5 (4.8-8.0); PROTEIN,URINE 100 mg/dl (Neg); UROBILINOGEN,URINE 0.2 E.U/dL (0.2-1.0)
[2018-10-03 19:08] LABS: UA COLLECTION TYPE VOIDED
[2018-10-03 19:14] LABS: BACTERIA,URINE NONE SEEN /HPF (Neg); RBC,URINE 0-2 /HPF (0-2); SQUAMOUS EPITHELIAL CELL,UR FEW /LPF (FEW); WBC,URINE 0-4 /HPF (0-4)
[2018-10-03 19:18] LABS: TOTAL PROTEIN,URINE RANDOM 290.5 MG/DL
[2018-10-03 21:22] LABS: UA EOSINOPHILS NO EOS /HPF
[2018-10-03] MEDS: atorvastatin 10mg tablet PO SCH (21:23)
[2018-10-04 02:00] VITALS: BP 158/90
[2018-10-04] MEDS: sodium chloride 0.45% 1,000 ML IV SCH ×2 (05:00→15:40)
[2018-10-04 06:00] VITALS: BP 185/107
--- NOTE | 2018-10-04 06:45 | NUR ---
Patient in room PCU 3016. I have received report from Carlee KUMAR and had the opportunity to ask questions and assume patient care.
[2018-10-04 06:51] LABS: BASOPHILS % (AUTO) 0.7 % (0-1); EOSINOPHILS # (AUTO) 0.1 X10'3 (0-0.9); EOSINOPHILS % (AUTO) 1.2 % (0-6); HEMATOCRIT 31.1 % (42.0-52.0); HEMOGLOBIN 10.3 g/dl (14.0-17.9); LYMPHOCYTES # (AUTO) 1.5 X10'3 (1.1-4.8); LYMPHOCYTES % (AUTO) 25.9 % (21-51); MEAN CORPUSCULAR HEMOGLOBIN 27.8 PG (27.0-31.0); MEAN CORPUSCULAR HGB CONC 33.3 g/dL (33.0-36.5); MEAN CORPUSCULAR VOLUME 83.5 FL (78-98); MEAN PLATELET VOLUME 9.3 FL (7.4-10.4); MONOCYTES # (AUTO) 0.5 X10'3 (0-0.9); MONOCYTES % (AUTO) 9.4 % (2-12); NEUTROPHILS # (AUTO) 3.6 X10'3 (1.8-7.7); NEUTROPHILS % (AUTO) 62.8 % (42-75); PLATELET COUNT 149 X10'3 (140-440); RED BLOOD COUNT 3.72 X10'6 (4.70-6.10); RED CELL DISTRIBUTION WIDTH 15.4 % (11.5-14.5); WHITE BLOOD COUNT 5.7 X10'3 (4.5-11.0)
[2018-10-04 06:53] LABS: ALBUMIN 1.6 G/DL (3.4-5.0); ANION GAP 8 (8-16); BLOOD UREA NITROGEN 62 MG/DL (7-18); BUN/CREATININE RATIO 14.1 (5.4-32.0); CALCIUM 8.5 MG/DL (8.5-10.1); CHLORIDE 110 MMOL/L (99-107); CREATININE 4.39 MG/DL (0.60-1.10); GLUCOSE 140 MG/DL (70-104); MAGNESIUM 1.7 MG/DL (1.5-2.4); POTASSIUM 4.4 MMOL/L (3.5-5.1); SODIUM 140 MMOL/L (135-145); eGFR 17 ML/MIN
[2018-10-04] MEDS: hydrALAZINE 20mg/ml inj. IV PRN (07:25)
[2018-10-04] MEDS: K and/or MAG REPLACEMENT MC SCH (08:00)
[2018-10-04] MEDS: aspirin 325mg tablet PO SCH (08:55)
[2018-10-04] MEDS: isosorbide mononitrate 30mg tab.SR.24H PO SCH (08:56)
[2018-10-04] MEDS: NIFEdipine XL 30mg tablet PO SCH (08:56)
[2018-10-04] MEDS: pantoprazole 40mg Tablet.DR PO SCH (08:56)
[2018-10-04] MEDS: cloNIDine 0.1 mg tablet PO SCH ×2 (08:56→20:32)
[2018-10-04] MEDS: carVEDilol 12.5mg tablet PO SCH ×2 (08:56→20:32)
[2018-10-04] MEDS: heparin, porcine 5000 units/ml vial SQ SCH ×2 (08:58→20:32)
[2018-10-04] MEDS: HYDROcodone/acetaminophen 5mg/325mg tablet PO PRN ×3 (09:18→20:34)
[2018-10-04 11:00] VITALS: BP 141/79
--- NOTE | 2018-10-04 11:36 | NUR ---
Initial: Pt admit w/ weakness PO 100% mechanical soft/carb controlled meals meeting needs. LBM 4/5 w/ colace BID started last night. Per RN will try to give colace today prior to d/c to [facility] this afternoon. Pt has severe weakness and LUE/LLE/RLE +3 non-pitting edema but given PO hx this admit in addition to no scaled wt prior hx and no significant wt loss from stated wts prior admits does not qualify for malnutrition at this time. Will continue to monitor. Rec: 1. continue carb controlled/mechanical soft diet per MD 2. routine bowel care 3. wt per rx Addendum: 10/04/18 at [address] Amended: Links added.
[2018-10-04 15:00] VITALS: BP 141/79
[2018-10-04 18:30] VITALS: BP 123/75
[2018-10-04] MEDS: atorvastatin 10mg tablet PO SCH (20:32)
[2018-10-05] VITALS: BP 136/82
[2018-10-05] MEDS: sodium chloride 0.45% 1,000 ML IV SCH ×2 (01:00→11:54)
[2018-10-05] MEDS: HYDROcodone/acetaminophen 5mg/325mg tablet PO PRN ×2 (02:18→08:42)
[2018-10-05 02:30] VITALS: BP 167/89
[2018-10-05] MEDS: hydrALAZINE 20mg/ml inj. IV PRN (03:20)
[2018-10-05 05:31] LABS: BASOPHILS % (AUTO) 0.6 % (0-1); EOSINOPHILS # (AUTO) 0.1 X10'3 (0-0.9); EOSINOPHILS % (AUTO) 0.9 % (0-6); HEMATOCRIT 31.9 % (42.0-52.0); HEMOGLOBIN 10.8 g/dl (14.0-17.9); LYMPHOCYTES # (AUTO) 1.5 X10'3 (1.1-4.8); LYMPHOCYTES % (AUTO) 25.1 % (21-51); MEAN CORPUSCULAR HEMOGLOBIN 27.9 PG (27.0-31.0); MEAN CORPUSCULAR HGB CONC 33.8 g/dL (33.0-36.5); MEAN CORPUSCULAR VOLUME 82.4 FL (78-98); MEAN PLATELET VOLUME 9.2 FL (7.4-10.4); MONOCYTES # (AUTO) 0.5 X10'3 (0-0.9); MONOCYTES % (AUTO) 8.3 % (2-12); NEUTROPHILS % (AUTO) 65.1 % (42-75); PLATELET COUNT 165 X10'3 (140-440); RED BLOOD COUNT 3.87 X10'6 (4.70-6.10); RED CELL DISTRIBUTION WIDTH 15.2 % (11.5-14.5); WHITE BLOOD COUNT 6.2 X10'3 (4.5-11.0)
[2018-10-05 05:42] LABS: ALANINE AMINOTRANSFERASE 45 U/L (12-78); ALBUMIN 1.7 G/DL (3.4-5.0); ALBUMIN/GLOBULIN RATIO 0.4 (1.1-1.5); ALKALINE PHOSPHATASE 55 IU/L (46-116); ANION GAP 7 (8-16); ASPARTATE AMINO TRANSFERASE 33 U/L (10-37); BILIRUBIN,TOTAL 0.2 MG/DL (0.1-1.0); BLOOD UREA NITROGEN 61 MG/DL (7-18); BUN/CREATININE RATIO 13.6 (5.4-32.0); CALCIUM 8.4 MG/DL (8.5-10.1); CHLORIDE 110 MMOL/L (99-107); CREATININE 4.49 MG/DL (0.60-1.10); GLUCOSE 126 MG/DL (70-104); MAGNESIUM 1.5 MG/DL (1.5-2.4); PHOSPHORUS 3.9 MG/DL (2.3-4.5); POTASSIUM 4.4 MMOL/L (3.5-5.1); SODIUM 139 MMOL/L (135-145); TOTAL CARBON DIOXIDE 22.1 MMOL/L (24-32); TOTAL PROTEIN 5.7 G/DL (6.4-8.2); eGFR 16 ML/MIN
[2018-10-05 06:08] LABS: RHEUM FACTOR QUAL REFLEX TITER NEGATIVE (Neg)
--- NOTE | 2018-10-05 06:10 | NUR ---
Patient in room PCU 3016. I have received report from Denisa KUMAR and had the opportunity to ask questions and assume patient care.
[2018-10-05 07:00] VITALS: BP 178/93
[2018-10-05] MEDS: cloNIDine 0.1 mg tablet PO SCH (07:19)
[2018-10-05] MEDS: isosorbide mononitrate 30mg tab.SR.24H PO SCH (07:19)
[2018-10-05] MEDS: NIFEdipine XL 30mg tablet PO SCH (07:19)
[2018-10-05] MEDS: heparin, porcine 5000 units/ml vial SQ SCH (07:20)
[2018-10-05] MEDS: carVEDilol 12.5mg tablet PO SCH (07:20)
[2018-10-05] MEDS: pantoprazole 40mg Tablet.DR PO SCH (07:20)
[2018-10-05] MEDS: K and/or MAG REPLACEMENT MC SCH (08:00)
[2018-10-05] MEDS: aspirin 325mg tablet PO SCH (08:42)
[2018-10-05 11:00] VITALS: BP 130/78
[2018-10-05] MEDS: insulin Lispro (HumaLOG) vial - multi-dose SQ SCH (14:20)
--- NOTE | 2018-10-05 14:27 | NUR ---
Patient transferred to [facility]. Patient transferred to [facility] via [facility] [employer]. Patient escorted via gurney by [facility] staff. IV catheter removed prior to transfer, catheter intact. All belongings sent with patient. Tele leads removed from patient prior to transfer, tele box returned to [facility]. Report called to Almaz at [facility]. All questions and concerns addressed with patient prior to discharge.
[2018-10-06 08:24] LABS: HBSAG SCREEN Negative (Negative); HEPATITIS C ANTIBODY >11.0 s/co ratio (0.0-0.9); IMMUNOGLOBULIN A, QN, SERUM 341 mg/dL (61-437); IMMUNOGLOBULIN G, QN, SERUM 872 mg/dL (700-1600); IMMUNOGLOBULIN M, QN, SERUM 60 mg/dL (20-172)
[2018-10-06 11:18] LABS: A/G RATIO 0.8 (0.7-1.7); ALBUMIN 2.2 g/dL (2.9-4.4); GAMMA GLOBULIN 0.7 g/dL (0.4-1.8); GLOBULIN, TOTAL 2.9 g/dL (2.2-3.9); M-SPIKE Not Observed g/dL (Not Observed); PROTEIN, TOTAL, SERUM 5.1 g/dL (6.0-8.5)
[2018-10-06 15:22] LABS: ANTINUCLEAR ANTIBODIES Negative (Negative)
[2018-10-07 08:11] LABS: COMPLEMENT C3, SERUM 81 mg/dL (82-167); COMPLEMENT C4, SERUM 18 mg/dL (14-44)
== END 2018-10-05 14:35 | DRG 64 ==
LOC: ER 12:54 → ED HOLD 16:57 → PCU 3S 20:12
PROVIDERS: ADMIT Internal Medicine; ATTEND Family Medicine
DX: I61.3 Nontraumatic intracerebral hemorrhage in brain stem (principal); I21.A1 Myocardial infarction type 2; I69.354 Hemiplegia and hemiparesis following cerebral infarction affecting left non-dominant side; N18.4 Chronic kidney disease, stage 4 (severe); N17.9 Acute kidney failure, unspecified; I12.9 Hypertensive chronic kidney disease with stage 1 through stage 4 chronic kidney disease, or unspecified chronic kidney disease; E11.21 Type 2 diabetes mellitus with diabetic nephropathy; E11.22 Type 2 diabetes mellitus with diabetic chronic kidney disease; E11.65 Type 2 diabetes mellitus with hyperglycemia; E11.649 Type 2 diabetes mellitus with hypoglycemia without coma; G89.29 Other chronic pain; E78.00 Pure hypercholesterolemia, unspecified; E78.5 Hyperlipidemia, unspecified; E86.0 Dehydration; I16.0 Hypertensive urgency; K21.9 Gastro-esophageal reflux disease without esophagitis; Z60.2 Problems related to living alone; I69.322 Dysarthria following cerebral infarction; Z99.3 Dependence on wheelchair; Z88.8 Allergy status to other drugs, medicaments and biological substances; Z79.899 Other long term (current) drug therapy; Z79.82 Long term (current) use of aspirin; Z83.3 Family history of diabetes mellitus
CPT/HCPCS: 36415; 70450; 70544; 70547; 70551; 71045; 76775; 80048; 80053; 80061; 81001; 82570; 82784; 82948; 83036; 83735; 84100; 84155; 84156; 84165; 84300; 84443; 84484; 85025; 85610; 85730; 86038; 86160; 86334; 86430; 86803; 87070; 87207; 87340; 92508; 92616; 93005; 93306; 93880; 96360; 97110; 97116; 97162; 97530; 99285; G0378; J0360; J1644; J1815; J2060; J2270; J3475; J3490; J7030

== ENCOUNTER 2020-09-08 17:15 | Emergency (ER) | payer MEDICARE, MEDICAID ==
[~2020-09-08] VITALS: Ht 170.2 cm; Wt 65.0 kg
[~2020-09-08 17:15] MED LIST changes: +CLON0.1T2 PO; -CLON0.1T20 PO; -DULO-31 PO; +ERGO500041 PO; -ERGOCALCIFEROL PO; -GLIM1TAB46 PO; +GLIM1TAB6 PO; -ISOS30TA6 PO; +ISOS30TA84 PO; +NIFE-34 PO; -NIFE30TA88 PO; -PANT40TA4 PO; +PANT40TA54 PO
[2020-09-08 17:37] VITALS: BP 143/68
[2020-09-08 19:43] LABS: BASOPHILS % (AUTO) 0.7 % (0-1); EOSINOPHILS % (AUTO) 0.7 % (0-6); HEMATOCRIT 31.6 % (42.0-52.0); HEMOGLOBIN 10.8 g/dl (14.0-17.9); LYMPHOCYTES % (AUTO) 20.3 % (21-51); MEAN CORPUSCULAR HEMOGLOBIN 31.6 PG (27.0-31.0); MEAN CORPUSCULAR HGB CONC 34.2 g/dL (33.0-36.5); MEAN CORPUSCULAR VOLUME 92.2 FL (78-98); MEAN PLATELET VOLUME 9.1 FL (7.4-10.4); MONOCYTES # (AUTO) 0.5 X10'3 (0-0.9); MONOCYTES % (AUTO) 9.3 % (2-12); NEUTROPHILS # (AUTO) 3.5 X10'3 (1.8-7.7); PLATELET COUNT 146 X10'3 (140-440); RED BLOOD COUNT 3.42 X10'6 (4.70-6.10); RED CELL DISTRIBUTION WIDTH 14.7 % (11.5-14.5); WHITE BLOOD COUNT 5.1 X10'3 (4.5-11.0)
[2020-09-08 19:55] LABS: ALANINE AMINOTRANSFERASE 31 U/L (12-78); ALBUMIN 2.9 G/DL (3.4-5.0); ALBUMIN/GLOBULIN RATIO 0.7 (1.1-1.5); ALKALINE PHOSPHATASE 93 IU/L (46-116); ANION GAP 10 (8-16); ASPARTATE AMINO TRANSFERASE 27 U/L (10-37); BILIRUBIN,TOTAL 0.4 MG/DL (0.1-1.0); BLOOD UREA NITROGEN 54 MG/DL (7-18); BUN/CREATININE RATIO 8.5 (5.4-32.0); CALCIUM 8.9 MG/DL (8.5-10.1); CHLORIDE 102 MMOL/L (99-107); CREATININE 6.35 MG/DL (0.60-1.10); GLUCOSE 182 MG/DL (70-104); MAGNESIUM 1.9 MG/DL (1.5-2.4); POTASSIUM 5.1 MMOL/L (3.5-5.1); SODIUM 139 MMOL/L (135-145); TOTAL CARBON DIOXIDE 27.3 MMOL/L (24-32); TOTAL PROTEIN 6.8 G/DL (6.4-8.2); eGFR 11 ML/MIN
== END 2020-09-08 20:49 | disposition home or self-care (01) ==
LOC: MERGE 17:16 → ER 17:16
DX: R53.83 Other fatigue (principal); E78.00 Pure hypercholesterolemia, unspecified; I12.0 Hypertensive chronic kidney disease with stage 5 chronic kidney disease or end stage renal disease; E11.22 Type 2 diabetes mellitus with diabetic chronic kidney disease; N18.6 End stage renal disease; Z99.2 Dependence on renal dialysis; Z88.8 Allergy status to other drugs, medicaments and biological substances; Z86.73 Personal history of transient ischemic attack (TIA), and cerebral infarction without residual deficits
CPT/HCPCS: 36415; 71045; 80053; 82948; 83735; 84484; 85025; 93005; 99285